=== PATIENT | female | born 1995 | race Hispanic/Latino ===

== ENCOUNTER 2022-05-18 22:26 | Emergency (ER) | payer SELFPAY ==
[~2022-05-18] VITALS: Ht 152.4 cm; Wt 73.0 kg
[2022-05-18 22:49] VITALS: BP 125/78
[2022-05-18 23:00] VITALS: BP 120/78
[2022-05-18 23:15] VITALS: BP 121/82
[2022-05-18 23:30] VITALS: BP 117/74
[2022-05-18 23:45] VITALS: BP 102/63
[2022-05-18 23:48] LABS: HEMATOCRIT 37.4 % (37.0-47.0); HEMOGLOBIN 12.9 g/dl (12.0-16.0); IMMATURE GRANULOCYTES 0.4 % (0.0-5.0); MEAN CELL VOLUME 87.2 fL CALC (80.0-100.0); MEAN CORPUSCULAR HGB 30.1 pG CALC (26.0-32.0); MEAN CORPUSCULAR HGB CONC 34.5 g/dL CAL (32.0-36.0); NEUT# 4.75 thou/uL (2.00-7.15); RED BLOOD COUNT 4.29 mill/uL (4.20-5.60); RED CELL DISTRI WIDTH 12.5 % (11.5-15.5)
[2022-05-18 23:54] LABS: URINE BILIRUBIN - DIPSTICK NEGATIVE (NEGATIVE); URINE BLOOD DIPSTICK TRACE-INTACT (NEGATIVE); URINE COLOR YELLOW; URINE GLUCOSE - DIPSTICK NEGATIVE (NEGATIVE); URINE KETONE TRACE mg/dL (NEGATIVE); URINE LEUK ESTERASE NEGATIVE (NEGATIVE); URINE PROTEIN - DIPSTICK NEGATIVE (NEG-TRACE); URINE SPECIFIC GRAVITY 1.015; URINE UROBILINOGEN - DIPSTICK 0.2 E.U./dL (0.2)
[2022-05-18 23:56] LABS: URINE NITRITE - DIPSTICK NEGATIVE (Negative)
[2022-05-19] VITALS (11 sets, daily range): BP systolic 100–113; BP diastolic 41–73
[2022-05-19 01:22] LABS: ALBUMIN 4.5 g/dL (3.2-5.0); ALKALINE PHOSPHATASE 49 u/l (38-126); AMYLASE 88 u/l (30-110); ANION GAP 15 (6-22 (CALC)); BILIRUBIN, TOTAL 0.3 mg/dL (0.0-1.4); BUN 8 mg/dL (7-17); BUN/CREATININE RATIO 17 (12-20 (CALC)); CARBON DIOXIDE 23 mmol/l (22-30); CHLORIDE 103 mmol/l (95-108); CREATININE 0.5 mg/dL (0.5-1.0); GFR FOR AFR.AMER. > 60 ML/MIN (>=60 (CALC)); GFR OTHER RACES > 60 ML/MIN (>=60 (CALC)); LIPASE 60 u/l (23-300); POTASSIUM 3.5 mmol/l (3.5-5.1); SGOT/AST 30 u/l (14-36); SODIUM 138 mmol/l (137-146)
[2022-05-19 01:47] LABS: BETA-HCG, QUANT(RESULT NUMBER) 130510 mIU/mL
[2022-05-19] MEDS ORDERED: ONDANSETRON4 MG PO (02:12)
== END 2022-05-19 02:28 | disposition home or self-care (01) | DRG 833 ==
LOC: ED 22:26
PROVIDERS: Emergency Medicine
DX: O21.0 Mild hyperemesis gravidarum (principal)